=== PATIENT | female | born 1945 | race Caucasian/White ===

== ENCOUNTER 2016-09-19 12:00 | Day surgery (SDC) | payer MEDICARE, OTHER ==
[2016-09-17 12:06] LABS: HEMATOCRIT 41.3 % (36.0-48.0); HEMOGLOBIN 13.8 g/dL (12.0-16.0)
[2016-09-17 12:14] LABS: BUN (BLOOD UREA NITROGEN) 18 MG/DL (6-23); CALCIUM, SERUM 9.4 MG/DL (8.5-10.4); CHLORIDE, SERUM 104 MMOL/L (96-112); CO2 (CARBON DIOXIDE) 29 MMOL/L (24-34); CREATININE 0.91 MG/DL (0.55-1.02); GFR AFRICAN AMERICAN 73 ML/MIN (>=60); GFR NON AFRICAN AMERICAN 63 ML/MIN (>=60); SODIUM, SERUM 141 MMOL/L (135-148)
[2016-09-17 12:16] LABS: GLUCOSE, SERUM 92 MG/DL (60-99)
--- NOTE | ~2016-09-19 | OP ---
Record Of Operation [facility] [address] [place]. [address] NAME: ISIDRA CABRERA : 43 STATUS : [facility]#: [id number] AGE: 71 ADM/REG DATE : 09/19/16 MR#: [id number] REPORT SERV DATE: 09/19/16 DICTATED BY: ANNIKA MILLAN DATE: 09/19/16 REPORT STATUS : Draft TRANSCRIBED BY: MODL DATE: 09/19/16 DATE OF PROCEDURE: 09/19/2016 SURGEON: Annika Millan M.D. ELECTRICAL SERVICE TECHNICIAN: Dr. Rodriguez. ANESTHESIA: General and local. PREOPERATIVE DIAGNOSIS: Left breast mass x2. POSTOPERATIVE DIAGNOSIS: Left breast mass x2. PROCEDURE: Left breast excisional biopsy. HISTORY: The patient is a 71-year-old, white female, who had presented many months ago with a complex cyst in the left breast upper outer quadrant. This was aspirated under ultrasound guidance and completely disappeared with aspiration. Fluid was blood stained and was sent for cytology. Cytology was negative. This lesion again recurred and again was aspirated with complete disappearance of the lesion. Cytology again was negative for evidence of malignancy. More recently, the patient presented with reaccumulation of the same cystic lesion in the left breast upper outer quadrant 1 o'clock area near the axillary tail of the breast. At this time, there was an additional similar appearing complex cystic lesion seen slightly inferiorly placed. Because of the recurrence of this lesion and the appearance of a second lesion, excision of the area was advised for complete pathologic evaluation. NARRATIVE SUMMARY: After satisfactory anesthesia via LMA airway, left arm was placed out on an arm board. There was a readily palpable round mass measuring about 2 cm diameter in the left breast upper outer quadrant 1 o'clock area toward the axillary tail of the breast. Inferior to this, there was a second less well defined, but palpable mass which was smaller. Ultrasound scanning was performed to confirm that these two palpable areas corresponded to the complex cyst previously visualized. This was the case. No localization or markings were required as both areas were readily palpable. The left breast was then prepped and draped in the usual fashion. A time-out was called to verify the identity of the patient, review allergies, verify appropriate administration of antibiotics, and verify the appropriate procedure as being left breast excisional biopsy. Marcaine 0.5% was used to infiltrate the skin and subcutaneous tissue overlying the breast masses in the upper outer quadrant. A curvilinear incision was made. The more superior mass was initially excised under palpation guidance. This was marked for orientation Record Of Operation [address] [address] NAME: ISIDRA CABRREA : 43 STATUS : [facility] PAT#: [id number] AGE: 71 ADM/REG DATE : 09/19/16 MR#: [id number] REPORT SERV DATE: 09/19/16 DICTATED BY: ANNIKA MILLAN DATE: 09/19/16 REPORT STATUS : Draft TRANSCRIBED BY: MODL DATE: 09/19/16 purposes with two sutures placed and this was labeled left breast mass superior. Further palpation within the open wound revealed the second cystic mass and this was surrounded by more firm irregular tissue. The entirety of the palpable abnormality was excised. This was marked for orientation purposes as well with two sutures placed. This was labeled left breast mass inferior. Both masses were sent as separate specimens and handed off fresh to the pathologist. All tissue will be processed for permanent section. Palpation of the remaining open wound revealed no other palpable abnormalities. The wound was thoroughly irrigated and aspirated free of fluid. Bleeding was controlled using cautery. The area was infiltrated further with 0.5% Marcaine. Closure was accomplished in layers using 3-0 Vicryl interrupted subcutaneous suture and 4-0 Monocryl running subcuticular closure for skin. Dressings were applied and the patient was awakened and transported to the recovery area in stable condition. Estimated blood loss was 25 mL. Sponge, instrument, and needle counts were all correct. There were no complications noted. LW/ABEL Annika Millan M.D. / [id number] CC: Zoe Mascorro M.D.
[~2016-09-19 12:00] MED LIST: ASAB PO; COZ25 PO; CRESTOR10 PO; ESTROGEL TD; SEV VITAMINS; VAGIFEM10 MCG V; WELLXL300 PO
[2016-10-09] MEDS ORDERED: VAGIFEM10 MCG V (12:18)
[2016-10-09] MEDS ORDERED: DSS PO (12:19)
== END 2016-09-19 16:54 | disposition home or self-care (01) ==
LOC: SDC 12:00
PROVIDERS: Surgery
PROC: 0HBU0ZX Excision of Left Breast, Open Approach, Diagnostic (ICD-10-PCS; principal; 2016-09-19 13:15)
DX: C50.912 Malignant neoplasm of unspecified site of left female breast (principal); F32.9 Major depressive disorder, single episode, unspecified; F41.9 Anxiety disorder, unspecified; E78.5 Hyperlipidemia, unspecified; G47.30 Sleep apnea, unspecified; M19.90 Unspecified osteoarthritis, unspecified site; E78.00 Pure hypercholesterolemia, unspecified; F17.210 Nicotine dependence, cigarettes, uncomplicated; J45.909 Unspecified asthma, uncomplicated; I10 Essential (primary) hypertension; Z90.79 Acquired absence of other genital organ(s); Z90.710 Acquired absence of both cervix and uterus; Z88.1 Allergy status to other antibiotic agents; Z88.5 Allergy status to narcotic agent; Z79.899 Other long term (current) drug therapy
CPT/HCPCS: 80048; 85014; 85018; 88307; 88341; 88342; 88344; 88360; 93005; A9270-GY; J0690; J1885; J2250; J2405; J3010

== ENCOUNTER 2016-10-15 10:19 | Observation (INO) | payer MEDICARE, OTHER ==
[2016-10-09 13:27] LABS: HEMATOCRIT 40.5 % (36.0-48.0); HEMOGLOBIN 13.3 g/dL (12.0-16.0); MANUAL DIFF YES %; MEAN CORPUS HGB CONC 32.8 g/dL (32.0-36.0); MEAN CORPUSCULAR HEMOGLOB 30.9 pg (26.0-34.0); MEAN PLATELET VOLUME 9.9 fL (9.2-13.0); PLATELET COUNT 334 10/3/uL (150-400); RED CELL COUNT 4.31 10/6/uL (4.0-5.6)
[2016-10-09 13:33] LABS: PARTIAL THROMBO TIME 29.1 SEC (22.5-37.2); PROTIME (NOT ORD) 13.5 SEC (12.0-14.5)
[2016-10-09 13:39] LABS: A/G RATIO 1.3 (0.7-1.9); ALBUMIN 3.9 G/DL (3.5-5.0); ALKALINE PHOSPHATASE 71 U/L (45-117); BUN (BLOOD UREA NITROGEN) 18 MG/DL (6-23); CALCIUM, SERUM 9.1 MG/DL (8.5-10.4); CHLORIDE, SERUM 108 MMOL/L (96-112); CO2 (CARBON DIOXIDE) 26 MMOL/L (24-34); CREATININE 0.98 MG/DL (0.55-1.02); GFR AFRICAN AMERICAN 67 ML/MIN (>=60); GFR NON AFRICAN AMERICAN 58 ML/MIN (>=60); GLOBULIN 2.9 G/DL (2.5-4.1); GLUCOSE, SERUM 60 MG/DL (60-99); SGOT(AST) 18 U/L (5-40); SGPT(ALT) 30 U/L (5-65); SODIUM, SERUM 143 MMOL/L (135-148); TOTAL BILIRUBIN 0.3 MG/DL (0-1.2); TOTAL PROTEIN 6.8 G/DL (6.0-8.5)
[2016-10-09 13:46] LABS: BAND NEUTROPHILS 1 %; EOSINOPHILS 1 %; EOSINOPHILS ABSOLUTE (CALC) 0.11 10/3/uL (0.0-0.53); LYMPHOCYTES 23 %; LYMPHOCYTES ABSOLUTE (CALC) 2.53 10/3/uL (0.67-4.30); MONOCYTES 3 %; MONOCYTES ABSOLUTE (CALC) 0.33 10/3/uL (0.21-1.20); NEUTROPHILS ABSOLUTE (CALC) 8.03 10/3/uL (2.02-8.40); PLATELET ESTIMATE ADQ (ADEQUATE); RBC MORPHOLOGY NORM (NORMAL); SEGMENTED NEUTROPHIL (0) 72 %; TOTAL NUCLEATED CELLS 100
[2016-10-09 13:54] LABS: PFA (COL/EPI) 116 SEC (72-180)
--- NOTE | ~2016-10-15 | OP ---
Record Of Operation [facility] [address] [place]. [address] NAME: ISIDRA CABRERA : 43 STATUS : [facility] PAT#: [id number] AGE: 71 ADM/REG DATE : 10/15/16 MR#: [id number] REPORT SERV DATE: 10/15/16 DICTATED BY: ANNIKA MILLAN DATE: 10/15/16 REPORT STATUS : Draft TRANSCRIBED BY: MODL DATE: 10/15/16 DATE OF PROCEDURE: 10/15/2016 SURGEON: Dr. Annika Millan M.D. ANESTHESIA: General endotracheal. PREOPERATIVE DIAGNOSIS: Left breast cancer. POSTOPERATIVE DIAGNOSIS: Left breast cancer. PROCEDURES: 1. Injection, blue dye, left breast. 2. Left skin-sparing mastectomy. 3. Left axillary sentinel node biopsy x2. HISTORY: The patient is a 71-year-old female, who recently underwent excision of two recurrent complex cysts with significant solid component in the left breast upper outer quadrant near the axilla. These had been aspirated on a couple of occasions and have promptly recurred. Cytology had been benign, but because of ongoing concerns about the appearance of these lesions, she underwent excision. 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 However, in the surrounding tissue, she also had extensive mucinous-type DCIS with microinvasion. The total diameter of the DCIS exceeded 10 cm and margins were not free. Because of the extent of the DCIS component, she was advised to undergo mastectomy. [place] lymph node biopsy was also recommended. She prefers to proceed with breast reconstruction surgery and has seen Dr. Francois preoperatively in this regard. They also plan a contralateral right matching procedure. NARRATIVE SUMMARY: Earlier in the day, the patient was taken to the Nuclear Medicine Department, where she underwent injection of technetium-99m sulfur colloid to the skin of the left breast. Subsequent imaging failed to show any migration of radiotracer to the axilla. This was not surprising given the location of her recent incision, essentially in the lower axillary area. Dictated report stated there was no migration of contrast, but the patient says she was rescanned after the initial scan, showing faint elimination of a node. The patient was brought to surgery and given a balanced general endotracheal anesthetic. Both arms were placed on arm boards. After appropriate skin prep, a 1:4 dilution of methylene blue dye was injected in the left subareolar space with a total of 4 mL injected. The breast was massaged for several minutes. Record Of Operation [facility] [address] [place]. [address] NAME: ISIDRA CABRERA : 43 STATUS : [facility] PAT#: [id number] AGE: 71 ADM/REG DATE : 10/15/16 MR#: [id number] REPORT SERV DATE: 10/15/16 DICTATED BY: ANNIKA MILLAN DATE: 10/15/16 REPORT STATUS : Draft TRANSCRIBED BY: ABEL DATE: 10/15/16 Bilateral breast and axillary areas were then prepped and draped in the usual fashion. Time-out was called to verify the identity of the patient, review allergies, verify appropriate administration of antibiotics, and verify the appropriate procedure as being left mastectomy and sentinel node biopsy. There was a well-healed incision in the left breast extreme upper outer quadrant, essentially at the anterior margin of the axilla. There was a circumvertical incision outlined preoperatively by Dr. Francois incorporating the nipple-areolar complex in a teardrop fashion with the point of the tear drop at the 6 o'clock position inframammary crease. Utilizing the plasma blade, incision was made along above-mentioned skin markings. Also utilizing the plasma blade, skin and subcutaneous flaps were dissected superiorly to the level of the clavicle, medially to the sternum, inferiorly to the rectus abdominis fascia, and laterally to the serratus anterior muscle. During the course of the lateral dissection in the axillary area, the previous excision site was transected at the undersurface of the skin. This contained a small amount of liquified old blood. The breast was then removed in a medial to lateral direction taking underlying pectoralis fascia with it. The specimen was marked for orientation purposes with a single suture placed at the 12 o'clock position with the specimen being labeled left breast. This was handed off fresh to the pathologist. In the upper outer quadrant, the open cavity surface represented the surface essentially under the skin of the lateral mastectomy flap. This will be processed for permanent section. Attention was then turned to performance of the sentinel node biopsy. There was no blue dye, seemed to have migrated into the area at any point during the dissection. The axillary fat pad was entered, and residual, somewhat thickened tissue from the recent excision cleared in order to visualize the fat pad. There was little signal present within the axilla with gamma probe interrogation, although a signal could be identified. This led initially to discovery of a small lymph node, which was removed from surrounding tissue. All dissection in the axilla was performed using the Harmonic Scalpel. This node had an ex vivo 10-second count in the 62 range and was sent to pathology labeled sentinel node #1. A second area of increased signal was noted in a slightly lateral location. This led to resection of additional tissue, uncertain as to whether a node could be palpated within it. This had an ex vivo 10-second count in the lesser double digit range. This was sent to pathology labeled sentinel node #2. There was no significant remaining background count within the axilla and no palpable adenopathy was noted. No further dissection in the axilla was felt indicated and both nodes were sent for permanent pathologic examination. Additional thickened tissue from the undersurface of the mastectomy flap at the skin incision was further carefully resected utilizing the Harmonic Scalpel. This was sent as an additional fragmented specimen for permanent section only, non oriented, labeled re-excision seroma cavity margin. Record Of Operation [facility] [address] [facility] [place]. [address] NAME: ISIDRA CABRERA : 43 STATUS : [facility] PAT#: [id number] AGE: 71 ADM/REG DATE : 10/15/16 MR#: [id number] REPORT SERV DATE: 10/15/16 DICTATED BY: ANNIKA MILLAN DATE: 10/15/16 REPORT STATUS : Draft TRANSCRIBED BY: MODL DATE: 10/15/16 The wound was thoroughly irrigated and aspirated free of fluid. Bleeding on the chest wall was controlled using the plasma blade and cautery. The case was turned over to Dr. Francois for performance of immediate reconstruction as well as a contralateral matching procedure. Estimated blood loss for this portion of the procedure was 25 mL. Sponge, instrument, and needle counts were all correct. There were no complications noted. LW/ABEL Annika Millan M.D. / [id number] CC: Zoe Mascorro M.D.
--- NOTE | ~2016-10-15 | OP ---
Record Of Operation [facility] [address] [place]. [address] NAME: ISIDRA CABRERA : 43 STATUS : [facility] PAT#: [id number] AGE: 71 ADM/REG DATE : 10/15/16 MR#: [id number] REPORT SERV DATE: 10/17/16 DICTATED BY: TORITO FRANCOIS DATE: 10/16/16 REPORT STATUS : Draft TRANSCRIBED BY: ABEL DATE: 10/16/16 DATE OF PROCEDURE: 10/15/2016 PREOPERATIVE DIAGNOSES: Surgical absence of the left breast; right breast ptosis. POSTOPERATIVE DIAGNOSES: Surgical absence of the left breast; right breast ptosis. PROCEDURE: Tissue expansion, acellular dermal matrix reconstruction of the left breast, and right breast nj type mastopexy. INDICATIONS AND FINDINGS OF THE PROCEDURE: This 71-year-old female presents with an anticipated surgical absence of the left breast. She is appropriate for the above-described operative intervention. DETAILS OF THE PROCEDURE: The patient presents on the operating table after a left mastectomy. Our attention was immediately returned to the left breast. The pectoralis muscle was released from its inferior attachments, and then an appropriately reconstituted sheet of acellular dermal matrix was sewn to the cut edge of the pectoralis muscle. The purpose of the acellular dermal matrix was to stabilize the tissue wood heel back liner, reconstruct the inframammary crease and supplement the soft tissue envelope. A 500 mL tissue wood heel back liner was then placed behind the muscle AlloDerm construct. It was sutured into place, fixed to the chest wall, and two inferior drains were placed. She was then injected with bupivacaine solution at the pectoralis and serratus block. She was thoroughly irrigated with Hibiclens solution, and a progressive tension closure of the breast was then ensued with multiple layers of 3-0 PDS and Monocryl through to and intracuticular in the skin. Our attention was then turned contralaterally for a matching glandular mastopexy. The infratemporal pedicle was de-epithelialized. The excess inferior breast wings were then de-epithelialized. The superior construct and flap was then freed from the inferior construct. This allowed the perfusion to the nipple-areolar complex. The wings were subsequently elevated from the chest wall, rotated in turns and sutured into place, combining them with the central column fixing them to the chest wall with 3-0 Monocryl. The superior breast flap was then depleted of excess breast tissue. The superior breast flap was then wrapped around the above-described construct. Excess skin and breast tissue was excised as needed. She was thoroughly irrigated with Hibiclens solution and then closed with multiple layers of 3-0 Monocryl through to an intracuticular in the skin. the areolar complex was chosen, this was excised. The nipple-areolar complex was introduced and inset with 3-0 Monocryl. All wounds were then closed with running intracuticular 3-0 Monocryl. She was cleansed with peroxide. Light dressings were placed. Nitro paste was placed on the left and she was remanded to the recovery room in stable condition. All sponge and needle counts were correct. TIM/ABEL Record Of [address] [address] NAME: ISIDRA CABRERA : 43 STATUS : DIS [facility] PAT#: [id number] AGE: 71 ADM/REG DATE : 10/15/16 MR#: [id number] REPORT SERV DATE: 10/17/16 DICTATED BY: TORITO FRANCOIS DATE: 10/16/16 REPORT STATUS : Draft TRANSCRIBED BY: ABEL DATE: 10/16/16 Torito Francois M.D. / [id number] CC: Zoe Mascorro M.D.
[~2016-10-15 10:19] MED LIST changes: +DSS PO
[2016-10-16] MEDS ORDERED: AT25 PO (14:48)
[2016-10-16] MEDS ORDERED: K500 PO (14:48)
[2016-10-16] MEDS ORDERED: PERCOCET 7.5/321 TAB PO (14:49)
== END 2016-10-16 15:40 | disposition home or self-care (01) ==
LOC: SDC 10:19 → SDC/OF 18:52 → 5SO 20:38
PROVIDERS: Surgery; Surgery Surgery of the Hand
PROC: 07B60ZX Excision of Left Axillary Lymphatic, Open Approach, Diagnostic (ICD-10-PCS; 2016-10-15)
PROC: 3E0W3KZ Introduction of Other Diagnostic Substance into Lymphatics, Percutaneous Approach (ICD-10-PCS; 2016-10-15)
PROC: 0HST0ZZ Reposition Right Breast, Open Approach (ICD-10-PCS; 2016-10-15)
PROC: 0HSWXZZ Reposition Right Nipple, External Approach (ICD-10-PCS; 2016-10-15)
PROC: 0HHU0NZ Insertion of Tissue Expander into Left Breast, Open Approach (ICD-10-PCS; principal; 2016-10-15 13:45)
PROC: 0HTU0ZZ Resection of Left Breast, Open Approach (ICD-10-PCS; 2016-10-15 13:45)
DX: C77.3 Secondary and unspecified malignant neoplasm of axilla and upper limb lymph nodes (principal); C50.412 Malignant neoplasm of upper-outer quadrant of left female breast; F41.9 Anxiety disorder, unspecified; F32.9 Major depressive disorder, single episode, unspecified; M19.90 Unspecified osteoarthritis, unspecified site; E78.5 Hyperlipidemia, unspecified; G40.909 Epilepsy, unspecified, not intractable, without status epilepticus; G47.30 Sleep apnea, unspecified; E78.00 Pure hypercholesterolemia, unspecified; D64.9 Anemia, unspecified; I10 Essential (primary) hypertension; J45.909 Unspecified asthma, uncomplicated; Z90.710 Acquired absence of both cervix and uterus; Z90.49 Acquired absence of other specified parts of digestive tract; Z98.890 Other specified postprocedural states; Z87.891 Personal history of nicotine dependence; Z80.3 Family history of malignant neoplasm of breast; Z79.52 Long term (current) use of systemic steroids; Z79.82 Long term (current) use of aspirin; Z79.899 Other long term (current) drug therapy
CPT/HCPCS: 15271; 19303; 19316; 19357; 38525; 38900; 71020; 78195; 80053; 85025; 85576; 85610; 85730; 88305; 88307; 88341; 88342; 96374; 96375; 96376; A9270 ×7; A9541; C1769; C1789; G0378; J0690 ×2; J1885 ×2; J2250; J2270 ×2; J2405; J2710; J2795; J3010; Q4116; 88344; Q9968